=== PATIENT | male | born 1960 | race Caucasian/White ===

== ENCOUNTER → 2024-06-16 06:28 | Day surgery (SDC) | payer OTHER, SELFPAY | LOC: GI 06:28 | PROVIDERS: ATTENDING PHYSICIAN Internal Medicine Gastroenterology | DX: Z12.11 Encounter for screening for malignant neoplasm of colon (principal); K64.8 Other hemorrhoids; D12.2 Benign neoplasm of ascending colon; R10.13 Epigastric pain; K22.89 Other specified disease of esophagus; K29.70 Gastritis, unspecified, without bleeding; K29.50 Unspecified chronic gastritis without bleeding; K21.00 Gastro-esophageal reflux disease with esophagitis, without bleeding; Z86.010 Personal history of colon polyps | CPT/HCPCS: 45385; 43239; 88305; 88342 ==

== ENCOUNTER 2025-09-21 16:00 | Emergency (ER) | payer OTHER, SELFPAY ==
[2025-09-21 16:02] VITALS: BP 177/87
[2025-09-21 16:23] LABS: Hematocrit 44.2 % (39.0-52.0); Hemoglobin 15.5 g/dL (13.0-18.0); Mean Corp Hgb Conc. 35.1 g/dL (33.0-37.0); Mean Corpuscular Volume 88.6 fL (80.0-94.0); Nucleated Red Blood Cells % 0 % (-); Platelet Count 143 10^3/uL (130-400); Red Cell Dist. Width 12.9 % (11.5-14.5)
[2025-09-21 16:28] LABS: ALT (SGPT) 42 U/L (0-50); AST (SGOT) 32 U/L (17-59); Albumin 4.8 g/dl (3.5-5.0); Alkaline Phosphatase 58 U/L (38-126); Blood Urea Nitrogen 23 mg/dl (9-20); Calcium 9.3 mg/dl (8.4-10.2); Carbon Dioxide 27 mmol/L (22-30); Chloride 100 mmol/L (98-107); Glucose 134 mg/dl (70-99); Potassium 3.6 mmol/L (3.5-5.1); Sodium 134 mmol/L (135-145); Total Protein 8.0 g/dl (6.3-8.2); eGFR > 60.00
[2025-09-21 16:40] LABS: Troponin I < 0.012 ng/ml
[2025-09-21 17:20] VITALS: BP 190/76
[2025-09-21 19:00] VITALS: BP 152/81
[2025-09-21 19:49] VITALS: BMI 30.6
--- NOTE | 2025-09-21 19:49 | ED.GENMED ---
History of Present Illness
General
Chief Complaint: Chest Pain
Source: patient, spouse and previous hospital records (Prior EKG 2019, unchanged from current EKG. Colonoscopy/endoscopy June 2024)
Exam Limitations: none
Time Seen by Provider: 09/21/25 19:20
Nursing documentation reviewed up to this point in time: agreed with
History of Present Illness
History of Present Illness:
The patient is a 65-year-old male presenting with a three-day history of chest pressure. The patient describes the sensation as pressure rather than pain, consistently located lower substernal that radiates to the left upper chest. He has also
noted intermittent tingling of his left hand. Notably, the pressure tends to dissipate upon belching and is absent upon awakening. The chest pressure mainly occurs during the day but not necessarily worsened with physical activity but does seem
worse when walking around at work, and is promptly relieved by belching. The patient denies any associated nausea, palpitations, or dyspnea. The patient has a history of acid reflux and is currently taking esomeprazole 20 mg daily, having been
switched from omeprazole by a car installations supervisor a few years ago due to a similar episode. The patient expresses concern that the current medication may no longer be effective. The patient denies experiencing exacerbation with meals or lying down
and identifies no specific food triggers, including tolerating spicy foods well. No significant changes postprandial or upon laying down are noted. The patient reports a prior history of hepatitis C, which was cleared in 2011. Additionally, the
patient experiences occasional tingling in the left fingertips but denies any radiation of pain or discomfort into the left arm beyond the fingertips.
He has history of hypertension, chronically maintained on metoprolol and Dyazide.
He has been following with chiropractor due to bilateral hip pain, tendinopathy which has been improving with stretching exercises. He does note some discomfort to his left leg which he describes as 'feeling hot' which he attributes to stretching
exercises. He has had no back pain, no lower extremity edema, no weakness nor numbness. He has not noticed a rash. No fever and or chills.
No recent travel.
He has not been taking NSAIDs. He notes occasional alcohol consumption. Non-smoker.
No personal history of CAD but does have family history of CAD in both his mother and father.
Past History
Past History
ED Past Medical History: GERD, HTN and Other (Hepatitis C, treated and cleared by 2012. Lumbar DJD.)
ED Past Surgical History: Appendectomy, Orthopedic (Right rotator cuff repair) and Other (Hernia repair)
Social History
Tobacco: Non-smoker
Alcohol: Occasional
Drug: None
Personal:
Living: with family
Employment: Employed
Family History
Family History: CAD (Both mother and father)
Phy Exam
Physical Exam
Physical Exam:
GENERAL: 65-year-old gentleman appears his stated age, bright alert, pleasant, appears in no acute distress. Easily communicative. is accompanying.
EYE: anicteric
NECK: Supple, nontender, no meningismus, no significant adenopathy.
ENT: oral mucosa is moist. No rhinorrhea.
CARDIAC: Regular rate and rhythm. no murmur. No chest wall tenderness.
LUNGS: Clear breath sounds bilaterally, no acute respiratory distress, no wheezes/rales/rhonchi
ABDOMEN: Rotund, soft, nondistended, without focal tenderness, no r/g, no cvat. normoactive BS. Palpation at epigastrium causes patient to briefly burp but does not elicit pain.
NEUROLOGICAL: Alert and oriented x3, no focal neuro deficits.
SKIN: Warm and dry, normal color, skin intact. No rash.
MUSCULOSKELETAL: No C/C/E. peripheral pulses are full and equal b/l. No palpable tenderness.
PSYCH: Normal and appropriate interaction.
Scores
Heart Score for Chest Pain Patients
STEMI patient?: No
History: Slightly or Non-Suspicious
ECG: Normal
Age: >45 - <65 years
Risk Factors: 1 or 2 Risk Factors
Troponin: </= Normal Limit
Heart Score for Chest Pain Patients: 2
Heart Score Risk: 2.5% MACE over next 6 weeks
Course
Orders/Labs/Results
Orders:
Orders
09/21/25 16:01
EKG [Electrocardiogram (*1)] Urgent
Reason for Study: Chest Pain
EKG- Treatment ONCE
09/21/25 16:09
Complete Blood Count/With Diff Urgent
Comprehensive Metabolic Panel Urgent
Troponin I Urgent
09/21/25 19:33
Electrocardiogram (*1) Urgent
Reason for Study: Chest Pain
EKG- Treatment ONCE
CR Chest - 2 Views Urgent
Comment:
Reason For Exam: cp x 3 days
09/21/25 19:51
Troponin I Urgent
Abnormal Lab Results
09/21/25
16:09
MCH 31.1 H pg
(27.0-31.0)
Absolute Monos (auto) 0.7 H 10^3/uL
(0.1-0.6)
Monocytes % 11.7 H %
(1.7-9.3)
Sodium 134 L mmol/L
(135-145)
BUN 23 H mg/dl
(9-20)
Glucose 134 H mg/dl
(70-99)
09/21/25 16:09
09/21/25 16:09
Vital Signs
Initial and Last Documented VS:
Initial Vital Signs
Temp Pulse Resp BP Pulse Ox
98.2 F 70 16 177/87 97
09/21/25 16:02 09/21/25 16:02 09/21/25 16:02 09/21/25 16:02 09/21/25 16:02
Last Documented Vital Signs
Temp Pulse Resp BP Pulse Ox
98.2 F 58 13 190/76 95
09/21/25 16:02 09/21/25 17:20 09/21/25 17:20 09/21/25 17:20 09/21/25 20:00
MDM/Problems Addressed
Differential Diagnosis Includes:
The Differential Diagnosis includes, in no particular order and is not limited to:
1. Gastroesophageal reflux disease (GERD)
2. Esophageal spasm
3. Costochondritis
4. Musculoskeletal pain
5. Myocardial ischemia
6. Anxiety-related chest discomfort
7. Peptic ulcer disease
8. Atypical pneumonia
9. Aortic dissection (less likely given presentation)
10. Pulmonary embolism (less likely given presentation)
MDM/Problems Addressed:
Acute chest pain/pressure over the past 3 days.
Reassuring that chest pain promptly resolves with burping and night suspect exacerbation of GERD in nature.
No personal history of CAD but strong family history in his mother and father.
He does note some left hip/thigh discomfort which he describes as 'a warmth/heat sensation' without specific pain, no rash, no swelling. He has had no associated shortness of breath, no pleuritic chest pain, no fever no chills.
He does have history of lumbar DJD and more recently has been following with a chiropractor regarding bilateral hip tendinitis, performing stretching exercises with overall improvement in symptoms.
No history of thromboembolism and no definitive risk factors for thromboembolism.
I suspect his left leg discomfort is tendinopathy/musculoskeletal in nature. Other consideration is a lumbar radiculopathy but overall mild and appears to be improving.
Currently asymptomatic, chest pain-free.
EKG is unremarkable showing normal sinus rhythm, no acute ST-T wave abnormalities, similar and unchanged from previous EKG October 2020.
Thus far labs are unremarkable including negative troponin.
Will plan to repeat troponin and EKG and will check chest x-ray.
If chest pain recurs will trial a GI cocktail.
Chronic conditions affecting care: HTN and Other (GERD)
*Radiology
Radiology exam reviewed: preliminary read by ED provider (Chest x-ray is unremarkable.)
*Pulse Oximetry
SaO2: 95
Oxygen Mode of Delivery: Room air
Patient hypoxic: no
*EKG
Interpreted by ED Provider?: Yes
Interpretation: normal
Comparison EKG: no changes (Unchanged from previous 2019)
Rate: normal
Rhythm: sinus
Beatrice: normal axis
Interval: normal interval
QRS Pattern: normal QRS
Ischemia: no ischemia
*Breakdown Person Interpretation
Rate: normal
Interpretation: normal
Rhythm: sinus
*Critical Care Note
Total Time (30-74mins, 75-104mins- exclusive of procedures): Not Applicable
Data Reviewed
Review of Other/Old Records Reveals: Records (Stress echo [address]. [address] Dr[address] Blum.) and Testing (Previous EKG, 2019, prior stress echo 2013)
Source: patient and spouse
Update Note
Update Note:
21:05
Patient remains chest pain-free and comfortable.
Repeat EKG unremarkable and unchanged from previous.
Repeat troponin remains negative.
I do suspect GERD as cause for chest pain and will increase Nexium from 20 mg to 40 mg, initially twice daily for 2 weeks and then will decrease to once daily thereafter.
Recommend bland diet.
Due to to strong family history of CAD as well as history of hypertension will refer to cardiology for prompt follow-up as well. Patient has been seen by [facility] cardiology/Dr. Blum in the past.
Recommend follow-up with PCP and GI as well.
Return precautions discussed.
ED Attending Note
-
Portions of this chart may have been created with voice recognition software.� Occasional wrong word or��sound alike� substitutions may have occurred due to the inherent limitations of voice recognition software.
Discharge Plan
Departure
Patient Disposition: Home (Routine Discharge)
Date of Disposition: 09/21/25
Time of Disposition: 21:11
Patient with high blood pressure during this ER visit?: No
Condition: Good
Discharge Problem:
Acute chest pain, Exacerbation of GERD
Instructions: Acid Reflux and GERD in Adults (DC), Chest Pain CBC Follow Up
Prescriptions:
New
esomeprazole magnesium [Nexium] 40 mg capsule,delayed release(DR/EC)
40 mg PO BID Qty: 60 0RF
Discontinued
lansoprazole [Prevacid] 15 MG capsule,delayed release(DR/EC)
15 mg PO BID
ibuprofen 200 MG tablet
400 - 600 mg PO Q6HPRN PRN (Reason: moderate pain) Qty: 1 0RF
No Action
metoprolol succinate [Toprol XL] 50 MG tablet extended release 24 hr
50 mg PO HS
triamterene-hydrochlorothiazid 1 EACH tablet
1 ea PO DAILY
Referrals:
Jacques Beauchamp MD [Family Provider, Family Practice] - Call in 1-3 days for appt
Interventions
Interventions:
*Risk Screen - Suicide Last Done: 09/21/25 16:02
*General Assessment Last Done: 09/21/25 17:24
*Neglect/Abuse Screening Last Done: 09/21/25 16:02
*ED- Fall Risk Assessment Last Done: 09/21/25 17:24
*ED COVID-19 Vaccine History Last Done: 09/21/25 19:49
*ED Influenza Vaccine History Last Done: 09/21/25 19:49
ED- Cardiac Assessment Last Done: 09/21/25 17:24
Discharge Date and Time
Print Language: UPPER SORBIAN
[2025-09-21 20:00] VITALS: BP 144/84
[2025-09-21 20:30] LABS: Troponin I < 0.012 ng/ml
[2025-09-21 21:18] VITALS: BP 145/84
== END 2025-09-21 21:26 | disposition home or self-care (01) ==
LOC: EMR 16:00
PROVIDERS: Student in an Organized Health Care Education/Training Program; EMERGENCY PHYSICIAN Emergency Medicine; FAMILY PHYSICIAN Family Medicine
DX: R07.89 Other chest pain (principal); K21.9 Gastro-esophageal reflux disease without esophagitis; I10 Essential (primary) hypertension; Z86.19 Personal history of other infectious and parasitic diseases; Z90.49 Acquired absence of other specified parts of digestive tract
CPT/HCPCS: 99285; 71046; 80053; 84484; 85025; 93005

== ENCOUNTER → 2025-10-11 12:40 | Outpatient (REF) | payer OTHER, SELFPAY | LOC: RCS 12:40 | PROVIDERS: ATTENDING PHYSICIAN Student in an Organized Health Care Education/Training Program; FAMILY PHYSICIAN Family Medicine | DX: R07.9 Chest pain, unspecified (principal) | CPT/HCPCS: 93017; 93350 ==